=== PATIENT | male | born 1940 | race Caucasian/White ===

== ENCOUNTER 2023-10-25 08:55 | Observation (INO) | payer MEDICARE ==
[2023-10-23 08:58] VITALS: BP 163/74; PULSE 78; RESP 19
[2023-10-23 09:27] LABS: BASOPHILS # (AUTO) 0.04 K/uL (0.00-0.20); BASOPHILS % (AUTO) 0.5 % (0.0-5.0); EOSINOPHILS # (AUTO) 0.13 K/uL (0.00-0.70); EOSINOPHILS % (AUTO) 1.5 % (0.0-8.0); HEMATOCRIT 46.7 % (42-54); IMMATURE GRANULOCYTE ABSOLUTE 0.03 K/uL (0-1); LYMPHOCYTES # (AUTO) 2.4 K/uL (1.0-4.8); LYMPHOCYTES % (AUTO) 27.6 % (21.0-51.0); MEAN CORPUSCULAR HEMOGLOBIN 30.8 pg (27.0-33.0); MEAN CORPUSCULAR HGB CONC 33.2 g/dL (32.0-36.0); MEAN CORPUSCULAR VOLUME 92.7 fL (79-99); MONOCYTES # (AUTO) 0.6 K/uL (0.1-1.0); MONOCYTES % (AUTO) 6.6 % (3.0-13.0); NEUTROPHILS # (AUTO) 5.4 K/uL (1.8-7.7); NEUTROPHILS % (AUTO) 63.4 % (40.0-77.0); PLATELET COUNT (AUTO) 213 K/uL (130-400); RED BLOOD CELL COUNT(AUTO) 5.04 MIL/uL (4.50-6.20); RED CELL DISTRIBUTION WIDTH 13.2 % (11.0-15.5); WHITE BLOOD COUNT (AUTO) 8.5 K/uL (4.8-10.8)
[2023-10-23 09:31] LABS: APPEARANCE,URINE CLEAR (CLEAR); BILIRUBIN,URINE NEGATIVE (NEGATIVE); COLOR,URINE YELLOW (YELLOW); GLUCOSE, URINE (UA) NEGATIVE (NEGATIVE); KETONES,URINE NEGATIVE (NEGATIVE); LEUKOCYTE ESTERASE ,URINE NEGATIVE Leu/uL (NEGATIVE); NITRATE,URINE NEGATIVE (NEGATIVE); OCCULT BLOOD,URINE NEGATIVE (NEGATIVE); PH,URINE 6.5 (5.0-8.0); PROTEIN,URINE NEGATIVE (NEGATIVE)
[2023-10-23 09:34] LABS: CREATININE 1.2 mg/dL (0.5-1.5); POTASSIUM 4.3 mmol/L (3.5-5.1)
[2023-10-23 09:38] LABS: INR 0.94 (0.85-1.15); PROTHROMBIN TIME 10.9 SEC (9.6-11.6)
[2023-10-23 09:40] LABS: PARTIAL THROMBOPLASTIN TIME 26.7 SEC (26.3-35.5)
[2023-10-23 09:41] LABS: ADD UA MICROSCOPIC YES
[2023-10-23 09:44] LABS: MUCUS,URINE RARE LPF (None Seen); SQUAMOUS EPITHELIAL CELL,UR RARE /HPF (0-2); WBC,URINE 0-1 /HPF (0-1)
[2023-10-23 09:56] LABS: B-TYPE NATRIURETIC PEPTIDE 16 pg/mL (0-100)
[~2023-10-25] VITALS: Ht 170.2 cm; Wt 89.6 kg
[2023-10-25] VITALS (16 sets, daily range): BP systolic 117–155; BP diastolic 50–110; PULSE 66–72; RESP 12–17; O2SAT 93–94
[~2023-10-25 08:55] MED LIST: ASCO500C18 PO; CHOL500062 PO; FURO20TA4 PO; LANS30CA53 PO; LOSA25TA41 PO; MEMA5TAB42 PO; METO-391 PO; MULT-1367 PO; SIMV40TA59 PO; VITA1CAP85 PO; ZINC50TA15 PO
[2023-10-25] MEDS ORDERED: LIDOCAINE HCL 400MG/20ML VIAL ONE (15:14)
[2023-10-25] MEDS ORDERED: MIDAZOLAM HCL 1 MG/ML 2ML VIAL ONE (15:14)
[2023-10-25] MEDS ORDERED: IOHEXOL-350 75 ML VIAL IV ONE (15:14)
[2023-10-25] MEDS ORDERED: FENTANYL CITRATE PF 50 MCG/1 ML 2ML VIAL ONE (15:14)
[2023-10-25] MEDS ORDERED: HEPARIN 10,000 UNIT/10ML (1,000 UNIT/ML) VIAL ONE (15:14)
[2023-10-25] MEDS ORDERED: NITROGLYCERIN 50MG VIAL ONE (15:21)
[2023-10-25] MEDS ORDERED: IOHEXOL-350 50ML VIAL IV ONE (15:31)
[2023-10-25] MEDS: 0.9%NACL 1000ML 1,000 ML IV SCH (20:30)
[2023-10-25] MEDS: MEMANTINE HCL 5 MG TABLET PO SCH (23:04)
[2023-10-25] MEDS: SIMVASTATIN 20 MG TABLET PO SCH (23:05)
[2023-10-26] VITALS (16 sets, daily range): BP systolic 120–140; BP diastolic 58–84; PULSE 68–93; RESP 12–46; O2SAT 93–94
[2023-10-26 05:23] LABS: HEMATOCRIT 42.4 % (42-54); MEAN CORPUSCULAR HEMOGLOBIN 30.8 pg (27.0-33.0); MEAN CORPUSCULAR VOLUME 93.4 fL (79-99); RED BLOOD CELL COUNT(AUTO) 4.54 MIL/uL (4.50-6.20); WHITE BLOOD COUNT (AUTO) 8.9 K/uL (4.8-10.8)
[2023-10-26 05:52] LABS: POTASSIUM 3.9 mmol/L (3.5-5.1)
[2023-10-26] MEDS: LOSARTAN 25 MG TABLET PO SCH (08:25)
[2023-10-26] MEDS: ASCORBIC ACID 500 MG TAB PO SCH (08:25)
[2023-10-26] MEDS: PANTOPRAZOLE 40 MG TAB DR PO SCH (08:25)
[2023-10-26] MEDS: METOPROLOL SUCCINATE 50 MG TAB.SR.24H PO SCH (08:25)
[2023-10-26] MEDS: FUROSEMIDE 20 MG TABLET PO SCH (08:25)
[2023-10-26] MEDS: MULTIVITAMIN TABLET PO SCH (08:36)
[2023-10-26] MEDS ORDERED: (Zinc Gluconate (Zinc) 50 MG) PO SCH (09:00)
[2023-10-26] MEDS ORDERED: (Cholecalciferol (Vitamin D3) (Vitamin D3) 125 MCG) PO SCH (09:00)
[2023-10-26] MEDS ORDERED: DICYCLOMINE HCL 20 MG TAB PO PRN (16:00)
== END 2023-10-26 17:59 | disposition home or self-care (01) ==
LOC: DAH 08:55 → OBSVTOIN 08:56 → DAH 08:56 → DAHIP 08:56 → INTOOBSV 08:56 → 2CH 20:30
PROVIDERS: ADMIT Internal Medicine; ATTEND Internal Medicine
DX: I25.10 Atherosclerotic heart disease of native coronary artery without angina pectoris (principal); I10 Essential (primary) hypertension; E78.5 Hyperlipidemia, unspecified; I25.82 Chronic total occlusion of coronary artery; F03.90 Unspecified dementia, unspecified severity, without behavioral disturbance, psychotic disturbance, mood disturbance, and anxiety; Z86.2 Personal history of diseases of the blood and blood-forming organs and certain disorders involving the immune mechanism
CPT/HCPCS: 80048 ×2; 83880; 85025; 85610; 85730; 81001; 36415 ×2; 71045; 93005; 93460; 85027; C1769; C1894 ×3; C1760; J3490 ×2; Q9967 ×2; G0378 ×3; J1644; J2250; J3010

== ENCOUNTER 2023-11-02 16:00 | Inpatient (IN) | payer MEDICARE ==
[~2023-11-02] VITALS: Ht 170.2 cm; Wt 80.7 kg
[~2023-11-02 16:00] MED LIST changes: -ASCO500C18 PO
[2023-11-05 10:35] VITALS: BP 132/71; PULSE 62; RESP 18
[2023-11-05 10:35] LABS: BASOPHILS # (AUTO) 0.04 K/uL (0.00-0.20); BASOPHILS % (AUTO) 0.5 % (0.0-5.0); EOSINOPHILS # (AUTO) 0.18 K/uL (0.00-0.70); EOSINOPHILS % (AUTO) 2.5 % (0.0-8.0); HEMATOCRIT 46.4 % (42-54); IMMATURE GRANULOCYTE ABSOLUTE 0.04 K/uL (0-1); LYMPHOCYTES # (AUTO) 1.7 K/uL (1.0-4.8); MEAN CORPUSCULAR HEMOGLOBIN 30.8 pg (27.0-33.0); MEAN CORPUSCULAR HGB CONC 32.3 g/dL (32.0-36.0); MEAN CORPUSCULAR VOLUME 95.3 fL (79-99); MONOCYTES # (AUTO) 0.6 K/uL (0.1-1.0); MONOCYTES % (AUTO) 7.8 % (3.0-13.0); NEUTROPHILS # (AUTO) 4.8 K/uL (1.8-7.7); NEUTROPHILS % (AUTO) 65.7 % (40.0-77.0); PLATELET COUNT (AUTO) 229 K/uL (130-400); RED BLOOD CELL COUNT(AUTO) 4.87 MIL/uL (4.50-6.20); RED CELL DISTRIBUTION WIDTH 13.1 % (11.0-15.5); WHITE BLOOD COUNT (AUTO) 7.3 K/uL (4.8-10.8)
[2023-11-05 10:53] LABS: ALBUMIN 3.2 g/dL (3.5-5.0); BILIRUBIN,TOTAL 0.4 mg/dL (0.2-1.0); CREATININE 1.1 mg/dL (0.5-1.5); POTASSIUM 5.2 mmol/L (3.5-5.1); TOTAL PROTEIN, SERUM 6.8 g/dL (6.0-8.3)
[2023-11-05 11:11] LABS: B-TYPE NATRIURETIC PEPTIDE 23 pg/mL (0-100)
[2023-11-05 11:22] LABS: INR 0.95 (0.85-1.15); PROTHROMBIN TIME 11.1 SEC (9.6-11.6)
[2023-11-05 11:24] LABS: PARTIAL THROMBOPLASTIN TIME 26.4 SEC (26.3-35.5)
[2023-11-05 11:33] LABS: ABG BASE EXCESS 2.6 mmol/L (-2.0-3.0); ABG HCO3 27.3 mmol/L (21.0-28.0); ABG OXYGEN SATURATION 93.8 % (95.0-99.0); ABG PCO2 42 mmHg (35-48); ABG PH 7.427 (7.35-7.450); CARBON MONOXIDE 1.1; DEVICE COMMENT RR RA; HHb 6.1
[2023-11-06] VITALS (78 sets, daily range): BP systolic 75–168; BP diastolic 34–128; PULSE 71–102; RESP 4–31; O2SAT 97–100
[2023-11-06] MEDS ORDERED: AMINOCAPROIC ACID 5,000MG VIAL 15,000 MG in 0.9% NACL 500ML IV.SOLN 420 ML IV PRN (07:00)
[2023-11-06] MEDS ORDERED: NOREPINEPHRIN 8MG/250ML NS 250 ML IV PRN (07:00)
[2023-11-06] MEDS ORDERED: EPINEPHRINE PF 1MG (1:1,000) 10 MG in 0.9% NACL 250ML 240 ML IV PRN ×2 (07:00→10:30)
[2023-11-06] MEDS ORDERED: NITROGLYCERIN 50MG/D5W 250ML 1 BOT ONE (07:26)
[2023-11-06] MEDS ORDERED: ASPI-1197 PO (08:28)
[2023-11-06] MEDS: 0.9%NACL 1000ML 1,000 ML IV ONE (08:28)
[2023-11-06] MEDS ORDERED: CEFAZOLIN SODIUM 1 GM VIAL ONE (08:38)
[2023-11-06] MEDS ORDERED: PAPAVERINE HCL 30 MG/ML 2ML VIAL ONE (08:39)
[2023-11-06] MEDS ORDERED: SODIUM BICARB 50MEQ 50ML VIAL 200 ML ONE (08:45)
[2023-11-06] MEDS ORDERED: LIDOCAINE PF 100MG/5ML (2%) SYRINGE 5ML ONE (08:45)
[2023-11-06] MEDS ORDERED: HEPARIN 10,000 UNIT/10ML (1,000 UNIT/ML) VIAL ONE (08:45)
[2023-11-06] MEDS ORDERED: EPINEPHRINE PF 1MG (1:1,000) 1 MG/ML AMP ONE (08:45)
[2023-11-06] MEDS ORDERED: PROTAMINE SULFATE 10 MG/ML 25ML VIAL IV ONE (08:45)
[2023-11-06] MEDS ORDERED: NOREPINEPHRINE BITARTRATE 1 MG/1 ML ML IV ONE (08:45)
[2023-11-06] MEDS ORDERED: FENTANYL CITRATE PF 50 MCG/1 ML 20ML VIAL IJ ONE (08:46)
[2023-11-06] MEDS ORDERED: MIDAZOLAM HCL 1 MG/ML 2ML VIAL ONE ×2 (08:46→12:30)
[2023-11-06] MEDS ORDERED: GLYCOPYRROLATE 0.2 MG/ML 5 ML VIAL ONE (08:46)
[2023-11-06] MEDS ORDERED: PROPOFOL 10 MG/ML 20ML VIAL IV ONE (08:46)
[2023-11-06] MEDS ORDERED: ROCURONIUM BROMIDE 10MG/1ML 5ML VL ONE (08:47)
[2023-11-06] MEDS ORDERED: KETAMINE 50MG/ML SYRINGE 50 MG/ML DISP.SYRIN ONE ×2 (08:52→12:30)
[2023-11-06] MEDS: CEFAZOLIN SODIUM 2 GM VIAL IVPB ONE ×2 (09:45)
[2023-11-06] MEDS: PAPAVERINE HCL 30 MG/ML 2ML VIAL IRRIG ONE ×2 (10:20)
[2023-11-06 10:27] LABS: ABG BASE EXCESS 0.4 mmol/L (-2.0-3.0); ABG HCO3 25.6 mmol/L (21.0-28.0); ABG OXYGEN SATURATION 99.7 % (95.0-99.0); ABG PCO2 43 mmHg (35-48); CARBON MONOXIDE 0.7; DEVICE COMMENT 1; HHb 0.3; PO2, ARTERIAL BG 465.1 mmHg (83.0-108.0)
[2023-11-06] MEDS ORDERED: POTASSIUM PHOS 15 mMOL+NS250ML 250 ML IV PRN (10:30)
[2023-11-06] MEDS ORDERED: TRAMADOL HCL 50 MG TABLET PO PRN (10:30)
[2023-11-06] MEDS ORDERED: AMINOCAPROIC ACID 5,000MG VIAL 15,000 MG in 0.9% NACL 250ML 250 ML IV SCH (10:30)
[2023-11-06] MEDS ORDERED: 0.9% NACL 500ML IV.SOLN 500 ML IV SCH (10:30)
[2023-11-06] MEDS ORDERED: NOREPINEPHRINE BITARTRATE 8 MG in DEXTROSE 5%-WATER 250 ML IV PRN (10:30)
[2023-11-06] MEDS ORDERED: MORPHINE 2 MG SYG IV PRN (10:30)
[2023-11-06] MEDS ORDERED: DEXTROSE 50%-WATER 50 ML DISP.SYRIN IV PRN (10:30)
[2023-11-06] MEDS ORDERED: MAGNESIUM HYDROXIDE 30 ML/UDCUP PO PRN (10:30)
[2023-11-06] MEDS ORDERED: PROPOFOL 1000 MG/100 ML 100 ML IV PRN (10:30)
[2023-11-06] MEDS ORDERED: GLUCAGON 1MG KIT 1 MG ML IM PRN (10:30)
[2023-11-06] MEDS ORDERED: ACETAMINOPHEN 325 MG TAB PO PRN (10:30)
[2023-11-06] MEDS ORDERED: 0.9%NACL 10ML VIAL IVP PRN (10:30)
[2023-11-06] MEDS ORDERED: ACETAMINOPHEN 650 MG SUPPOSITORY RC PRN (10:30)
[2023-11-06] MEDS ORDERED: AMIODARONE 150MG VIAL ONE (11:30)
[2023-11-06 12:16] LABS: ABG BASE EXCESS -0.4 mmol/L (-2.0-3.0); ABG HCO3 27.3 mmol/L (21.0-28.0); ABG OXYGEN SATURATION 99.2 % (95.0-99.0); ABG PCO2 60 mmHg (35-48); ABG PH 7.279 (7.35-7.450); CARBON MONOXIDE 0.3; DEVICE COMMENT 3; HHb 0.8; PO2, ARTERIAL BG 414.9 mmHg (83.0-108.0)
[2023-11-06] MEDS ORDERED: POTASSIUM CHLORIDE 20MEQ/100ML 100 ML IV ONE (12:18)
[2023-11-06 13:11] LABS: ABG BASE EXCESS -5.1 mmol/L (-2.0-3.0); ABG HCO3 21.3 mmol/L (21.0-28.0); ABG OXYGEN SATURATION 98.6 % (95.0-99.0); ABG PCO2 45 mmHg (35-48); ABG PH 7.294 (7.35-7.450); CARBON MONOXIDE 0.4; DEVICE COMMENT ALINE; HHb 1.4; PO2, ARTERIAL BG 196.6 mmHg (83.0-108.0); VENT MODE, BG SIMV (ROOM AIR)
[2023-11-06 13:15] LABS: HEMATOCRIT 35.3 % (42-54); MEAN CORPUSCULAR HGB CONC 32.6 g/dL (32.0-36.0); MEAN CORPUSCULAR VOLUME 95.1 fL (79-99); RED BLOOD CELL COUNT(AUTO) 3.71 MIL/uL (4.50-6.20); RED CELL DISTRIBUTION WIDTH 13.2 % (11.0-15.5); WHITE BLOOD COUNT (AUTO) 28.6 K/uL (4.8-10.8)
[2023-11-06] MEDS: SODIUM BICARB 50MEQ 50ML VIAL IV PRN (13:15)
[2023-11-06] MEDS: ALBUMIN (HUMAN) 5% 250 ML IV PRN (13:24)
[2023-11-06] MEDS: POTASSIUM CHLORIDE 20MEQ/100ML 100 ML IV PRN (13:24)
[2023-11-06] MEDS: NITROGLYCERIN 50MG/D5W 250ML 250 BOT IV SCH (13:25)
[2023-11-06] MEDS: INSULIN REGULAR, HUMAN 3ML 100 UNIT in 0.9%NACL 100ML 99 ML IV SCH (13:26)
[2023-11-06 13:30] LABS: INR 1.1 (0.85-1.15); PROTHROMBIN TIME 12.7 SEC (9.6-11.6)
[2023-11-06 13:31] LABS: MAGNESIUM 1.5 mg/dL (1.80-2.40); PARTIAL THROMBOPLASTIN TIME 37.7 SEC (26.3-35.5); PHOSPHORUS 4.7 mg/dL (2.5-4.9)
[2023-11-06] MEDS: ASPIRIN 81MG CHEW TAB NG ONE (14:06)
[2023-11-06] MEDS: MORPHINE 2 MG SYG IV PRN (14:06)
[2023-11-06 14:10] LABS: ABG BASE EXCESS 0.8 mmol/L (-2.0-3.0); ABG HCO3 27.5 mmol/L (21.0-28.0); ABG OXYGEN SATURATION 98.4 % (95.0-99.0); ABG PCO2 54 mmHg (35-48); ABG PH 7.328 (7.35-7.450); CARBON MONOXIDE 0.2; DEVICE COMMENT ALINE; HHb 1.6; PO2, ARTERIAL BG 158.6 mmHg (83.0-108.0); VENT MODE, BG SIMV (ROOM AIR)
[2023-11-06] MEDS: CEFAZOLIN SODIUM 2 GM VIAL IVPB SCH (14:55)
[2023-11-06] MEDS: MAGNESIUM 2GM PREMIX 50ML 50 ML IV PRN (14:55)
[2023-11-06 15:21] LABS: ABG BASE EXCESS -0.2 mmol/L (-2.0-3.0); ABG HCO3 24.9 mmol/L (21.0-28.0); ABG OXYGEN SATURATION 97.6 % (95.0-99.0); ABG PCO2 42 mmHg (35-48); ABG PH 7.387 (7.35-7.450); CARBON MONOXIDE 0.3; HHb 2.4; PO2, ARTERIAL BG 112.3 mmHg (83.0-108.0); VENT MODE, BG SIMV PS 10 (ROOM AIR)
[2023-11-06] MEDS: ONDANSETRON 4MG INJ IV PRN (15:31)
[2023-11-06] MEDS: CALCIUM GLUC 1GM 1 GM in 0.9%NACL 50ML 50 ML IV PRN (15:31)
[2023-11-06 16:31] LABS: ABG BASE EXCESS 1.3 mmol/L (-2.0-3.0); ABG HCO3 26.4 mmol/L (21.0-28.0); ABG OXYGEN SATURATION 98.6 % (95.0-99.0); ABG PCO2 44 mmHg (35-48); ABG PH 7.396 (7.35-7.450); CARBON MONOXIDE 0.3; HHb 1.4; PO2, ARTERIAL BG 186.1 mmHg (83.0-108.0); VENT MODE, BG AC (ROOM AIR)
[2023-11-06 17:08] LABS: ABG BASE EXCESS 1.3 mmol/L (-2.0-3.0); ABG HCO3 26.4 mmol/L (21.0-28.0); ABG OXYGEN SATURATION 98.9 % (95.0-99.0); ABG PCO2 44 mmHg (35-48); CARBON MONOXIDE 0.3; DEVICE COMMENT ALINE; HHb 1.1; PO2, ARTERIAL BG 257.7 mmHg (83.0-108.0); VENT MODE, BG SIMV (ROOM AIR)
[2023-11-06 18:28] LABS: ABG BASE EXCESS 1.2 mmol/L (-2.0-3.0); ABG HCO3 25.5 mmol/L (21.0-28.0); ABG OXYGEN SATURATION 97.7 % (95.0-99.0); ABG PCO2 40 mmHg (35-48); ABG PH 7.427 (7.35-7.450); CARBON MONOXIDE 0.3; HHb 2.3; PO2, ARTERIAL BG 107.5 mmHg (83.0-108.0); VENT MODE, BG SIMV (ROOM AIR)
[2023-11-06 19:23] LABS: ABG BASE EXCESS -0.6 mmol/L (-2.0-3.0); ABG HCO3 24.3 mmol/L (21.0-28.0); ABG OXYGEN SATURATION 95.3 % (95.0-99.0); ABG PCO2 41 mmHg (35-48); ABG PH 7.391 (7.35-7.450); CARBON MONOXIDE 0.3; HHb 4.7; PO2, ARTERIAL BG 80.6 mmHg (83.0-108.0); VENT MODE, BG SIMV (ROOM AIR)
[2023-11-06] MEDS: DOCUSATE SODIUM 100 MG CAP PO ONE (20:12)
[2023-11-06] MEDS: FAMOTIDINE 20MG VIAL IV SCH (20:12)
[2023-11-06] MEDS: MEMANTINE HCL 5 MG TABLET PO SCH (20:12)
[2023-11-06] MEDS: SIMVASTATIN 20 MG TABLET PO SCH (20:13)
[2023-11-06 20:40] LABS: ABG BASE EXCESS 2.6 mmol/L (-2.0-3.0); ABG HCO3 27.5 mmol/L (21.0-28.0); ABG OXYGEN SATURATION 95.5 % (95.0-99.0); ABG PCO2 44 mmHg (35-48); ABG PH 7.417 (7.35-7.450); CARBON MONOXIDE 0.2; HHb 4.5; PO2, ARTERIAL BG 80.8 mmHg (83.0-108.0); VENT MODE, BG SIMV (ROOM AIR)
[2023-11-06 21:38] LABS: ABG BASE EXCESS 3.3 mmol/L (-2.0-3.0); ABG HCO3 29.3 mmol/L (21.0-28.0); ABG PCO2 51 mmHg (35-48); ABG PH 7.374 (7.35-7.450); CARBON MONOXIDE 0; PO2, ARTERIAL BG 80.7 mmHg (83.0-108.0); VENT MODE, BG SIMV (ROOM AIR)
[2023-11-06 22:44] LABS: ABG BASE EXCESS 3.1 mmol/L (-2.0-3.0); ABG HCO3 28.6 mmol/L (21.0-28.0); ABG OXYGEN SATURATION 95.5 % (95.0-99.0); ABG PCO2 48 mmHg (35-48); ABG PH 7.396 (7.35-7.450); CARBON MONOXIDE 0.2; HHb 4.5; PO2, ARTERIAL BG 82.7 mmHg (83.0-108.0); VENT MODE, BG SIMV (ROOM AIR)
[2023-11-06 23:36] LABS: ABG BASE EXCESS 1.4 mmol/L (-2.0-3.0); ABG HCO3 26.8 mmol/L (21.0-28.0); ABG PCO2 46 mmHg (35-48); ABG PH 7.385 (7.35-7.450); CARBON MONOXIDE 0.1; PO2, ARTERIAL BG 89.1 mmHg (83.0-108.0); VENT MODE, BG SIMV (ROOM AIR)
[2023-11-07] VITALS (114 sets, daily range): BP systolic 23–249; BP diastolic 22–300; PULSE 69–108; RESP 6–26; TEMP 98.1–99.6; O2SAT 94–99
[2023-11-07 00:47] LABS: ABG BASE EXCESS 3.4 mmol/L (-2.0-3.0); ABG HCO3 30.6 mmol/L (21.0-28.0); ABG OXYGEN SATURATION 93.8 % (95.0-99.0); ABG PCO2 60 mmHg (35-48); ABG PH 7.326 (7.35-7.450); CARBON MONOXIDE 0.5; HHb 6.2; PO2, ARTERIAL BG 75.4 mmHg (83.0-108.0); VENT MODE, BG AM,40 (ROOM AIR)
[2023-11-07 02:40] LABS: ABG BASE EXCESS 3.3 mmol/L (-2.0-3.0); ABG OXYGEN SATURATION 95.5 % (95.0-99.0); ABG PCO2 56 mmHg (35-48); ABG PH 7.349 (7.35-7.450); CARBON MONOXIDE 0.1; HHb 4.5; PO2, ARTERIAL BG 84.7 mmHg (83.0-108.0)
[2023-11-07 03:59] LABS: ABG HCO3 26.5 mmol/L (21.0-28.0); ABG OXYGEN SATURATION 95.6 % (95.0-99.0); ABG PCO2 51 mmHg (35-48); ABG PH 7.333 (7.35-7.450); CARBON MONOXIDE 0.1; HHb 4.4; PO2, ARTERIAL BG 88.3 mmHg (83.0-108.0)
[2023-11-07 04:40] LABS: HEMATOCRIT 33.4 % (42-54); MEAN CORPUSCULAR HEMOGLOBIN 30.8 pg (27.0-33.0); MEAN CORPUSCULAR HGB CONC 31.7 g/dL (32.0-36.0); MEAN CORPUSCULAR VOLUME 97.1 fL (79-99); RED BLOOD CELL COUNT(AUTO) 3.44 MIL/uL (4.50-6.20); RED CELL DISTRIBUTION WIDTH 13.6 % (11.0-15.5); WHITE BLOOD COUNT (AUTO) 14.1 K/uL (4.8-10.8)
[2023-11-07 05:04] LABS: CREATININE 0.9 mg/dL (0.5-1.5); MAGNESIUM 2.1 mg/dL (1.80-2.40); PHOSPHORUS 3.9 mg/dL (2.5-4.9); POTASSIUM 4.8 mmol/L (3.5-5.1)
[2023-11-07 06:02] LABS: INR 1.11 (0.85-1.15); PROTHROMBIN TIME 12.8 SEC (9.6-11.6)
[2023-11-07 06:03] LABS: PARTIAL THROMBOPLASTIN TIME 27.1 SEC (26.3-35.5)
[2023-11-07] MEDS: CEFAZOLIN SODIUM 2 GM VIAL ONE ×2 (08:37→08:44)
[2023-11-07] MEDS: 0.9%NACL 1000ML 1,000 ML IV SCH (08:37)
[2023-11-07] MEDS: ALBUMIN (HUMAN) 5% 250 ML IV ONE (08:38)
[2023-11-07] MEDS: FUROSEMIDE 20MG VIAL IV SCH ×2 (08:44→23:58)
[2023-11-07] MEDS: ASPIRIN 81MG CHEW TAB PO SCH (08:45)
[2023-11-07] MEDS: KETOROLAC 15MG/ML VIAL (15MG/ML) IV ONE (09:27)
[2023-11-07] MEDS: TRAMADOL HCL 50 MG TABLET PO PRN (09:28)
[2023-11-07] MEDS: KETOROLAC 15MG/ML VIAL (15MG/ML) ONE (09:28)
[2023-11-07 11:19] LABS: ABG BASE EXCESS 4.5 mmol/L (-2.0-3.0); ABG HCO3 31.1 mmol/L (21.0-28.0); ABG OXYGEN SATURATION 96.4 % (95.0-99.0); ABG PCO2 56 mmHg (35-48); CARBON MONOXIDE 0.6; HHb 3.6; PO2, ARTERIAL BG 88.8 mmHg (83.0-108.0); VENT MODE, BG BIPAP 14-7 (ROOM AIR)
[2023-11-07] MEDS: IPRATROPIUM 0.5 MG/2.5 ML INH IH SCH (11:30)
[2023-11-07] MEDS: BUDESONIDE 0.5 MG/2 ML INH IH SCH (18:31)
[2023-11-07 18:41] LABS: ABG HCO3 26.4 mmol/L (21.0-28.0); ABG OXYGEN SATURATION 94.3 % (95.0-99.0); ABG PCO2 50 mmHg (35-48); ABG PH 7.342 (7.35-7.450); PO2, ARTERIAL BG 75.8 mmHg (83.0-108.0); VENT MODE, BG BIPAP 14,5 (ROOM AIR)
[2023-11-08] VITALS (135 sets, daily range): BP systolic 58–209; BP diastolic 12–208; PULSE 84–119; RESP 10–58; TEMP 98–100.5; O2SAT 96–98
[2023-11-08] MEDS ORDERED: DOPAMINE 800MG/D5 250ML 250 ML IV PRN
[2023-11-08] MEDS: PHENYLEPHRINE HCL 50 MG in 0.9% NACL 250ML 250 ML IV PRN (00:42)
[2023-11-08] MEDS: PHENYLEPHRINE HCL 10 MG/ML 1ML VIAL IV ONE (00:43)
[2023-11-08] MEDS: ACETAMINOPHEN 325 MG TAB PO PRN (04:25)
[2023-11-08 05:01] LABS: HEMATOCRIT 35.1 % (42-54); MEAN CORPUSCULAR HEMOGLOBIN 30.7 pg (27.0-33.0); MEAN CORPUSCULAR HGB CONC 31.6 g/dL (32.0-36.0); MEAN CORPUSCULAR VOLUME 97.2 fL (79-99); RED BLOOD CELL COUNT(AUTO) 3.61 MIL/uL (4.50-6.20); RED CELL DISTRIBUTION WIDTH 13.8 % (11.0-15.5); WHITE BLOOD COUNT (AUTO) 22.8 K/uL (4.8-10.8)
[2023-11-08 05:09] LABS: CREATININE 1.1 mg/dL (0.5-1.5); POTASSIUM 3.8 mmol/L (3.5-5.1)
[2023-11-08 07:11] LABS: ABG BASE EXCESS 1.5 mmol/L (-2.0-3.0); ABG HCO3 27.6 mmol/L (21.0-28.0); ABG OXYGEN SATURATION 94.5 % (95.0-99.0); ABG PCO2 49 mmHg (35-48); ABG PH 7.367 (7.35-7.450); PO2, ARTERIAL BG 74.7 mmHg (83.0-108.0); VENT MODE, BG 3LNC (ROOM AIR)
[2023-11-08] MEDS: INSULIN HUMULIN R 100 UNIT/ML 3ML SQ SCH (07:30)
[2023-11-08] MEDS: METOPROLOL TARTRATE 25 MG TAB PO SCH (09:00)
[2023-11-08] MEDS: FUROSEMIDE 20 MG TABLET PO SCH (09:16)
[2023-11-08 13:40] LABS: ABG BASE EXCESS 2.8 mmol/L (-2.0-3.0); ABG HCO3 27.6 mmol/L (21.0-28.0); ABG OXYGEN SATURATION 92.5 % (95.0-99.0); ABG PCO2 43 mmHg (35-48); ABG PH 7.421 (7.35-7.450); CARBON MONOXIDE 0.6; HHb 7.4; VENT MODE, BG NC 3L (ROOM AIR)
[2023-11-08] MEDS ORDERED: IOHEXOL-350 75 ML VIAL IV ONE (18:34)
[2023-11-09] VITALS (85 sets, daily range): BP systolic 81–156; BP diastolic 37–81; PULSE 65–127; RESP 12–36; TEMP 97.1–97.9; O2SAT 95–100
[2023-11-09] MEDS: FUROSEMIDE 20MG VIAL ONE (00:49)
[2023-11-09] MEDS: FUROSEMIDE 20MG VIAL IV ONE (01:42)
[2023-11-09 04:37] LABS: MEAN CORPUSCULAR HEMOGLOBIN 30.9 pg (27.0-33.0); MEAN CORPUSCULAR HGB CONC 32.3 g/dL (32.0-36.0); MEAN CORPUSCULAR VOLUME 95.7 fL (79-99); RED BLOOD CELL COUNT(AUTO) 3.24 MIL/uL (4.50-6.20); RED CELL DISTRIBUTION WIDTH 13.7 % (11.0-15.5); WHITE BLOOD COUNT (AUTO) 15.4 K/uL (4.8-10.8)
[2023-11-09 04:59] LABS: POTASSIUM 3.7 mmol/L (3.5-5.1)
[2023-11-09] MEDS: ENOXAPARIN SODIUM 30 MG/0.3 ML SQ SCH (08:46)
[2023-11-09] MEDS: MIDODRINE HCL 5 MG TABLET PO SCH (08:59)
[2023-11-09] MEDS: LACTULOSE 20 GM/30 ML UDCUP PO PRN (09:45)
[2023-11-09] MEDS: DOCUSATE SODIUM 100 MG CAP PO ONE (13:56)
[2023-11-09] MEDS: DOCUSATE SODIUM 100 MG CAP PO SCH ×2 (13:56→20:16)
[2023-11-09] MEDS: POLYETHYLENE GLYCOL 3350 17 GM POWD.PACK PO SCH (13:56)
[2023-11-09] MEDS: POLYETHYLENE GLYCOL 3350 17 GM POWD.PACK ONE (13:57)
[2023-11-09] MEDS ORDERED: IBUPROFEN 600 MG TABLET PO PRN (18:30)
[2023-11-09] MEDS: LIDOCAINE 5% TOPICAL PATCH TP SCH (20:18)
[2023-11-10] VITALS (62 sets, daily range): BP systolic 66–142; BP diastolic 36–65; PULSE 60–98; RESP 13–23; O2SAT 96–98
[2023-11-10 04:11] LABS: HEMATOCRIT 36.5 % (42-54); MEAN CORPUSCULAR HEMOGLOBIN 31.5 pg (27.0-33.0); MEAN CORPUSCULAR HGB CONC 32.1 g/dL (32.0-36.0); MEAN CORPUSCULAR VOLUME 98.1 fL (79-99); RED BLOOD CELL COUNT(AUTO) 3.72 MIL/uL (4.50-6.20); RED CELL DISTRIBUTION WIDTH 13.7 % (11.0-15.5); WHITE BLOOD COUNT (AUTO) 15.2 K/uL (4.8-10.8)
[2023-11-10 04:23] LABS: CREATININE 0.9 mg/dL (0.5-1.5); POTASSIUM 3.8 mmol/L (3.5-5.1)
[2023-11-10] MEDS: FAMOTIDINE 20MG TAB PO SCH (09:25)
[2023-11-10] MEDS: POLYETHYLENE GLYCOL 3350 17 GM POWD.PACK PO SCH (09:26)
[2023-11-10] MEDS ORDERED: 0.9% NACL 250ML 250 ML IV STA (15:25)
[2023-11-10] MEDS ORDERED: ALBUMIN (HUMAN) 25% 50 ML IV STA (15:25)
[2023-11-10] MEDS: ALBUMIN (HUMAN) 5% 250 ML IV ONE (15:46)
[2023-11-10] MEDS: ALBUMIN (HUMAN) 5% 250 ML IV SCH (15:47)
[2023-11-10] MEDS: MEMANTINE HCL 5 MG TABLET PO SCH (20:54)
[2023-11-10] MEDS: MIDODRINE HCL 5 MG TABLET PO SCH (20:54)
[2023-11-10] MEDS ORDERED: MEMANTINE HCL 5 MG TABLET PO SCH (21:00)
[2023-11-10] MEDS: DIPHENHYDRAMINE HCL 25 MG CAPSULE PO PRN (21:15)
[2023-11-11] VITALS (46 sets, daily range): BP systolic 86–135; BP diastolic 31–83; PULSE 64–102; RESP 13–22; O2SAT 92–100
[2023-11-11 05:00] LABS: HEMATOCRIT 31.7 % (42-54); MEAN CORPUSCULAR HEMOGLOBIN 31.1 pg (27.0-33.0); MEAN CORPUSCULAR HGB CONC 31.9 g/dL (32.0-36.0); MEAN CORPUSCULAR VOLUME 97.5 fL (79-99); RED BLOOD CELL COUNT(AUTO) 3.25 MIL/uL (4.50-6.20); RED CELL DISTRIBUTION WIDTH 13.6 % (11.0-15.5); WHITE BLOOD COUNT (AUTO) 9.1 K/uL (4.8-10.8)
[2023-11-11 05:14] LABS: CREATININE 0.8 mg/dL (0.5-1.5); POTASSIUM 3.3 mmol/L (3.5-5.1)
[2023-11-11] MEDS ORDERED: POTASSIUM CHLORIDE 20MEQ/100ML 100 ML IV PRN (10:00)
[2023-11-11] MEDS ORDERED: POTASSIUM CHLORIDE 10% ELIXIR 20 MEQ/15 ML UDCUP PO PRN (10:00)
[2023-11-11] MEDS: KCL 20 MEQ ERTAB PO PRN (10:18)
[2023-11-12] VITALS (16 sets, daily range): BP systolic 118–140; BP diastolic 61–71; PULSE 89–104; RESP 18–20; O2SAT 88–100
[2023-11-12] MEDS: FUROSEMIDE 40MG VIAL IV ONE (11:39)
[2023-11-12] MEDS ORDERED: ONDANSETRON 4MG TABLET PO PRN (14:30)
[2023-11-13] VITALS (9 sets, daily range): BP systolic 111–130; BP diastolic 57–71; PULSE 86–105; RESP 16–20; O2SAT 95
[2023-11-13] MEDS: FUROSEMIDE 40MG VIAL IV SCH (09:00)
[2023-11-13 09:11] LABS: BILIRUBIN,TOTAL 0.5 mg/dL (0.2-1.0); CREATININE 0.8 mg/dL (0.5-1.3); POTASSIUM 3.4 mmol/L (3.5-5.1); TOTAL PROTEIN, SERUM 5.4 g/dL (6.0-8.3)
== END 2023-11-13 16:25 | DRG 235 ==
LOC: DAHIP 11-06 05:58 → 2CV 11-06 11:01 → 2BH 11-07 16:50 → 2CH 11-10 18:58 → 2DH 11-11 17:15
PROVIDERS: ADMIT Thoracic Surgery (Cardiothoracic Vascular Surgery); ATTEND Thoracic Surgery (Cardiothoracic Vascular Surgery)
PROC: B24BZZ4 Ultrasonography of Heart with Aorta, Transesophageal (ICD-10-PCS; 2023-11-06)
PROC: 02100Z9 Bypass Coronary Artery, One Artery from Left Internal Mammary, Open Approach (ICD-10-PCS; principal; 2023-11-06 09:30)
PROC: 021109W Bypass Coronary Artery, Two Arteries from Aorta with Autologous Venous Tissue, Open Approach (ICD-10-PCS; 2023-11-06 09:30)
PROC: 06BQ4ZZ Excision of Left Saphenous Vein, Percutaneous Endoscopic Approach (ICD-10-PCS; 2023-11-06 09:30)
PROC: 0PS000Z Reposition Sternum with Rigid Plate Internal Fixation Device, Open Approach (ICD-10-PCS; 2023-11-06 09:30)
PROC: 5A09357 Assistance with Respiratory Ventilation, Less than 24 Consecutive Hours, Continuous Positive Airway Pressure (ICD-10-PCS; 2023-11-07)
PROC: 5A09457 Assistance with Respiratory Ventilation, 24-96 Consecutive Hours, Continuous Positive Airway Pressure (ICD-10-PCS; 2023-11-08)
PROC: 5A09357 Assistance with Respiratory Ventilation, Less than 24 Consecutive Hours, Continuous Positive Airway Pressure (ICD-10-PCS; 2023-11-09)
PROC: 02HV33Z Insertion of Infusion Device into Superior Vena Cava, Percutaneous Approach (ICD-10-PCS; 2023-11-11)
PROC: B548ZZA Ultrasonography of Superior Vena Cava, Guidance (ICD-10-PCS; 2023-11-11)
PROC: 5A09357 Assistance with Respiratory Ventilation, Less than 24 Consecutive Hours, Continuous Positive Airway Pressure (ICD-10-PCS; 2023-11-11)
DX: T82.855A Stenosis of coronary artery stent, initial encounter (principal); J96.01 Acute respiratory failure with hypoxia; J96.02 Acute respiratory failure with hypercapnia; D62 Acute posthemorrhagic anemia; F03.A11 Unspecified dementia, mild, with agitation; J98.11 Atelectasis; I25.10 Atherosclerotic heart disease of native coronary artery without angina pectoris; J44.9 Chronic obstructive pulmonary disease, unspecified; E66.9 Obesity, unspecified; E78.00 Pure hypercholesterolemia, unspecified; E87.70 Fluid overload, unspecified; G51.0 Bell's palsy; I11.9 Hypertensive heart disease without heart failure; I25.82 Chronic total occlusion of coronary artery; K21.9 Gastro-esophageal reflux disease without esophagitis; Y71.3 Surgical instruments, materials and cardiovascular devices (including sutures) associated with adverse incidents; Y92.89 Other specified places as the place of occurrence of the external cause; Y84.0 Cardiac catheterization as the cause of abnormal reaction of the patient, or of later complication, without mention of misadventure at the time of the procedure; Z79.899 Other long term (current) drug therapy; Z91.81 History of falling; Z68.27 Body mass index [BMI] 27.0-27.9, adult
CPT/HCPCS: 36415; 36600; 70450; 70496; 70498; 71045; 80048; 80053; 80061; 82330; 82435; 82803; 82947; 82948; 83036; 83605; 83735; 83880; 84100; 84132; 84295; 85018; 85025; 85027; 85347; 85610; 85730; 86850; 86900; 86901; 86923; 87641; 92610; 93005; 93306; 93308; 93312; 93318; 93880; 94002; 94010; 94150; 94640; 94660; 94664; A7048; G0378; J0171; J0282; J0690; J1265; J1644; J1650; J1815; J1885; J1940; J2001; J2250; J2270; J2371; J2405; J2440; J2704; J2720; J3010; J3475; J3480; J3490; J7030; J7040; J7050; P9045; Q0163; Q9967; A4213; A4215; A4216; A4221; A4222; A4223; A4315; A4452; A4510; A4649; A4663; A4930; A5120; A6204; A6219; A6260; A7040; C1713; C1776; G0168

== ENCOUNTER → 2023-12-12 | Outpatient (CLI) | payer MEDICARE ==
[~2023-12-12] MED LIST changes: +ASPI-1197 PO; +ATOR20TA65 PO; +BENZ-226 PO; +FAMO20TA8 PO; +FLUT10.67 IH; -LANS30CA53 PO; +LORA10TA7 PO; -LOSA25TA41 PO; +MEMA5TAB16 PO; -MEMA5TAB42 PO; -METO-391 PO; +METO25TA6 PO; -SIMV40TA59 PO
== END | disposition home or self-care (01) ==
LOC: OIH 14:36
PROVIDERS: ATTEND Internal Medicine Cardiovascular Disease
DX: I10 Essential (primary) hypertension (principal); I25.810 Atherosclerosis of coronary artery bypass graft(s) without angina pectoris; I70.0 Atherosclerosis of aorta; M47.815 Spondylosis without myelopathy or radiculopathy, thoracolumbar region
CPT/HCPCS: 71046

== ENCOUNTER → 2023-12-12 | Outpatient (CLI) | payer MEDICARE ==
[2023-12-12 16:50] LABS: CREATININE 1.5 mg/dL (0.5-1.3); POTASSIUM 4.2 mmol/L (3.5-5.1)
== END | disposition home or self-care (01) ==
LOC: LAB 14:07
PROVIDERS: ATTEND Internal Medicine Cardiovascular Disease
DX: I10 Essential (primary) hypertension (principal); E78.5 Hyperlipidemia, unspecified; I25.810 Atherosclerosis of coronary artery bypass graft(s) without angina pectoris
CPT/HCPCS: 36415; 80048; 83880